=== PATIENT | female | born 1985 | race Caucasian/White ===

== ENCOUNTER 2020-06-19 07:00 | Inpatient (IN) | payer OTHER ==
[2020-06-19 08:14] VITALS: BMI 32.5
[2020-06-19] MEDS ORDERED: ELECTROLYTE-148 SOLN 1,000 ML IV SCH (08:15)
[2020-06-19] MEDS ORDERED: OXYTOCIN 20 UNITS in 0.9% NS 0 UNIT/0 ML INFUS.BAG IV ONE (08:21)
[2020-06-19] MEDS ORDERED: OXYTOCIN 30 UNITS in 0.9% NS 30 UNIT/500 ML INFUS.BAG IVPB ONE (08:22)
[2020-06-19 08:56] LABS: BASO % 0.2 % (0-2.0); EOS % 2.6 % (0-4.5); HEMATOCRIT 31.6 % (32.4-45.2); HEMOGLOBIN 11.3 GM/dL (10.7-15.3); LYMPH % 20.7 % (8-40); MCH 30.9 pg (25.7-33.7); MCHC 35.6 g/dl (32.0-36.0); MEAN CELL VOLUME 86.8 fl (80-96); MEAN PLT VOLUME 9.7 fl (7.5-11.1); MONO % 7.9 % (3.8-10.2); NEUT % 68.6 % (42.8-82.8); PLATELET COUNT 190 K/MM3 (134-434); RBC 3.64 M/mm3 (3.60-5.2); RDW 13.1 % (11.6-15.6); WHITE BLOOD COUNT 8.4 K/mm3 (4.0-10.0)
[2020-06-19 09:01] LABS: INR 0.91 (0.83-1.09); PROTHROMBIN TIME (PATIENT) 11.1 SEC (9.7-13.0)
[2020-06-19 09:09] LABS: POTASSIUM 3.7 mmol/L (3.5-5.1)
[2020-06-19 09:11] LABS: BLOOD UREA NITROGEN 8.8 mg/dL (7-18); CALCIUM 8.7 mg/dL (8.5-10.1)
[2020-06-19 09:15] LABS: CREATININE 0.6 mg/dL (0.55-1.3)
[2020-06-19] MEDS ORDERED: OXYTOCIN 30 UNITS in 0.9% NS 30 UNIT/500 ML INFUS.BAG IVPB SCH (10:30)
[2020-06-19 11:46] LABS: HIV INTERPRETATION NEGATIVE (NEGATIVE)
[2020-06-19] MEDS ORDERED: BUTORPHANOL TARTRATE 2 MG/ML VIAL IVPUSH PRN (15:43)
[2020-06-19] MEDS ORDERED: FENTANYL/BUPIVACAINE/NS/PF - PCEA - 50 ML DISP.SYRIN EP ONE ×2 (16:20→21:23)
[2020-06-19] MEDS ORDERED: PCA PUMP NR ONE ×2 (16:20→21:23)
[2020-06-19] MEDS ORDERED: BUPIVACAINE HCL/PF 0.25% (2.5MG/ML) 10 ML VIAL ONE (16:25)
[2020-06-19] MEDS ORDERED: NALOXONE HCL 0.4 MG/ML VIAL IVPUSH PRN (17:14)
[2020-06-19] MEDS ORDERED: FENTANYL/BUPIVACAINE/NS/PF - PCEA - 50 ML DISP.SYRIN EP SCH (17:15)
[2020-06-19] MEDS ORDERED: DEXTROSE 5%-LACTATED RINGERS 1,000 ML IV SCH (19:30)
[2020-06-19] MEDS ORDERED: OXYTOCIN 20 UNITS in 0.9% NS 20 UNIT/1,000 ML INFUS.BAG IV ONE (22:49)
[2020-06-19] MEDS ORDERED: OXYTOCIN 20 UNITS in 0.9% NS 20 UNIT/1,000 ML INFUS.BAG IV SCH (23:45)
[2020-06-19] MEDS ORDERED: WITCH HAZEL 50% (TUCKS) 40 PAD/JAR PAD TP PRN (23:51)
[2020-06-19] MEDS ORDERED: BISACODYL 10 MG SUPP.RECT RC PRN (23:51)
[2020-06-19] MEDS ORDERED: BENZOCAINE 20% 57 GM BOTTLE TP PRN (23:51)
[2020-06-19] MEDS ORDERED: BENZOCAINE 28 GM HEMORRHOIDAL OINTMENT TP PRN (23:51)
[2020-06-19] MEDS ORDERED: oxyCODONE HCL 5 MG TABLET PO PRN (23:51)
[2020-06-19] MEDS ORDERED: METHYLERGONOVINE MALEATE 0.2 MG/1 ML AMP IM PRN (23:51)
[2020-06-20] MEDS ORDERED: OXYTOCIN 20 UNITS in 0.9% NS 20 UNIT/1,000 ML INFUS.BAG IV ONE (00:39)
[2020-06-20] MEDS: IBUPROFEN 600 MG TABLET (FP) PO PRN ×3 (00:42→12:09)
[2020-06-20] MEDS: ACETAMINOPHEN 325 MG TABLET (FP) PO PRN ×3 (00:44→12:10)
[2020-06-20] MEDS ORDERED: ACETAMINOPHEN 325 MG TABLET (FP) ONE (00:45)
[2020-06-20] MEDS ORDERED: IBUPROFEN 600 MG TABLET (FP) PO ONE (00:46)
[2020-06-20] MEDS ORDERED: PCA PUMP NR ONE (01:18)
[2020-06-20] MEDS: PRENATAL VITAMINS W/ FOLIC ACID TABLET (FP) PO SCH (09:56)
[2020-06-20 11:21] LABS: BASO % 0.1 % (0-2.0); EOS % 1.1 % (0-4.5); HEMATOCRIT 31.2 % (32.4-45.2); HEMOGLOBIN 10.8 GM/dL (10.7-15.3); MCH 30.5 pg (25.7-33.7); MCHC 34.7 g/dl (32.0-36.0); MEAN CELL VOLUME 87.9 fl (80-96); MEAN PLT VOLUME 10.2 fl (7.5-11.1); MONO % 5.2 % (3.8-10.2); NEUT % 84.6 % (42.8-82.8); PLATELET COUNT 165 K/MM3 (134-434); RBC 3.55 M/mm3 (3.60-5.2); WHITE BLOOD COUNT 14.6 K/mm3 (4.0-10.0)
[2020-06-20] MEDS ORDERED: SENNOSIDES/DOCUSATE COMBO (SENNA PLUS) TABLET (UD) PO PRN (22:00)
[2020-06-21] MEDS: ACETAMINOPHEN 325 MG TABLET (FP) PO PRN ×2 (00:10→09:07)
[2020-06-21] MEDS: IBUPROFEN 600 MG TABLET (FP) PO PRN ×2 (00:11→09:07)
[2020-06-21 08:46] VITALS: BP 100/70; PULSE 88; TEMP 97.8
[2020-06-21] MEDS: PRENATAL VITAMINS W/ FOLIC ACID TABLET (FP) PO SCH (09:08)
== END 2020-06-21 13:05 | disposition home or self-care (01) | DRG 560 ==
LOC: JLDR 07:00 → J3W 06-20 01:40
PROVIDERS: ADMIT Obstetrics & Gynecology; ATTEND Obstetrics & Gynecology
PROC: 10E0XZZ Delivery of Products of Conception, External Approach (ICD-10-PCS; principal; 2020-06-19)
PROC: 3E033VJ Introduction of Other Hormone into Peripheral Vein, Percutaneous Approach (ICD-10-PCS; 2020-06-19)
PROC: 10907ZC Drainage of Amniotic Fluid, Therapeutic from Products of Conception, Via Natural or Artificial Opening (ICD-10-PCS; 2020-06-19)
DX: O48.0 Post-term pregnancy (principal); O70.0 First degree perineal laceration during delivery; O69.1XX0 Labor and delivery complicated by cord around neck, with compression, not applicable or unspecified; O32.6XX0 Maternal care for compound presentation, not applicable or unspecified; Z3A.40 40 weeks gestation of pregnancy; Z37.0 Single live birth
CPT/HCPCS: 36415; 59409; 80048; 85025; 85610; 85730; 86780; 86850; 86900; 86901; 87389